=== PATIENT | male | born 2000 | race African-American/Black ===

== ENCOUNTER 2020-10-22 16:19 | Emergency (ER) | payer OTHER ==
[2020-10-22 16:50] VITALS: BP 116/71; PULSE 70; TEMP 98.2; BMI 26.2
[2020-10-22 17:54] LABS: PH,URINE >= 9.0 (5.0-8.0); URINE APPEARANCE CLEAR; URINE BILIRUBIN NEGATIVE (NEGATIVE); URINE COLOR YELLOW; URINE GLUCOSE (UA) NEGATIVE (NEGATIVE); URINE KETONE NEGATIVE (NEGATIVE); URINE LEUK ESTERASE NEGATIVE (NEGATIVE); URINE NITRITE NEGATIVE (NEGATIVE); URINE PROTEIN NEGATIVE (NEGATIVE); URINE UROBILINOGEN 0.2 mg/dL (0.2-1.0)
[2020-10-22] MEDS ORDERED: AZITHROMYCIN 500 MG TABLET PO ONE (18:44)
[2020-10-22] MEDS ORDERED: AZITHROMYCIN 250 MG TABLET ONE (18:44)
== END 2020-10-22 18:51 | disposition home or self-care (01) ==
LOC: JERFT 16:19
DX: R36.1 Hematospermia (principal)
CPT/HCPCS: 36415; 81003; 87086; 87491; 87591; 99284-25

== ENCOUNTER 2020-12-24 14:55 | Emergency (ER) | payer OTHER ==
[2020-12-24 15:02] VITALS: BP 121/62; PULSE 72; BMI 21.8
[2020-12-24] MEDS ORDERED: IBUPROFEN 400 MG TABLET (FP) PO ONE ×2 (15:19→15:21)
== END 2020-12-24 15:48 | disposition home or self-care (01) ==
LOC: JERFT 14:55
DX: S43.402A Unspecified sprain of left shoulder joint, initial encounter (principal); S43.102A Unspecified dislocation of left acromioclavicular joint, initial encounter
CPT/HCPCS: 73030-TC-LT-FY; 99283-25

== ENCOUNTER 2021-01-09 12:13 | Emergency (ER) | payer OTHER ==
[2021-01-09 12:32] VITALS: BP 122/81; PULSE 67; TEMP 98.8; BMI 23.1
== END 2021-01-09 13:45 | disposition home or self-care (01) ==
LOC: JERFT 12:13
DX: J03.90 Acute tonsillitis, unspecified (principal)
CPT/HCPCS: 99282-25

== ENCOUNTER 2021-03-01 18:27 | Emergency (ER) | payer OTHER ==
[2021-03-01 18:36] VITALS: BP 127/88; PULSE 75; TEMP 98; BMI 22.4
[2021-03-01] MEDS ORDERED: AZITHROMYCIN 500 MG TABLET PO ONE (18:58)
[2021-03-01] MEDS ORDERED: AZITHROMYCIN 250 MG TABLET ONE (19:42)
[2021-03-01 20:48] LABS: HIV INTERPRETATION NEGATIVE (NEGATIVE)
== END 2021-03-01 20:09 | disposition home or self-care (01) ==
LOC: JERFT 18:27
DX: Z11.3 Encounter for screening for infections with a predominantly sexual mode of transmission (principal)
CPT/HCPCS: 36415; 87389; 87491; 87591; 99284-25

== ENCOUNTER 2021-12-28 13:55 | Emergency (ER) | payer OTHER ==
[2021-12-28 14:25] VITALS: BP 101/52; PULSE 54; TEMP 97.8; BMI 22.4
[2021-12-28 15:35] LABS: URINE APPEARANCE CLEAR; URINE BILIRUBIN NEGATIVE (NEGATIVE); URINE COLOR YELLOW; URINE GLUCOSE (UA) NEGATIVE (NEGATIVE); URINE KETONE TRACE (NEGATIVE); URINE LEUK ESTERASE NEGATIVE (NEGATIVE); URINE NITRITE NEGATIVE (NEGATIVE); URINE PROTEIN NEGATIVE (NEGATIVE)
[2021-12-28 16:43] LABS: HIV INTERPRETATION NEGATIVE (NEGATIVE)
[2021-12-28] MEDS ORDERED: LIDOCAINE HCL/PF 1% SDV 5ML VIAL ONE (17:13)
== END 2021-12-28 17:19 | disposition home or self-care (01) ==
LOC: JERFT 13:55
PROC: 3E023GC Introduction of Other Therapeutic Substance into Muscle, Percutaneous Approach (ICD-10-PCS; principal; 2021-12-28)
DX: R82.81 Pyuria (principal)
CPT/HCPCS: 36415; 76870-TC; 81003; 86707; 86780; 86803; 87086; 87350; 87389; 87491; 87517; 87591; 99284-25